=== PATIENT | male | born 1955 | race Caucasian/White ===

== ENCOUNTER 2016-09-03 10:46 | Emergency (ER) | payer OTHER ==
[2016-09-03 11:04] VITALS: BP 145/79; PULSE 81; RESP 19; TEMP 98.1; O2SAT 94
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
--- NOTE | 2016-09-03 13:11 | DX ---
Right Hip, Two Views Indication: Pain following fall. Technique: AP and frog-leg lateral views. Comparison: None Findings: The bones are anatomically aligned. No fracture or bone lesion. Joint spaces are well preserved. Small bumps emanate off the right and left femoral heads the junctio n with the femoral neck, larger right than left suggestive of femoral acetabular impingement. Small o steophytes emanate off the acetabulum. No subchondral sclerosis or cyst. Minimal age-appropriate oste ophytes rightest involves the lower half of the sacroiliac joints. Impression: 1. 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 2. No acute fracture.
--- NOTE | 2016-09-03 13:19 | DX ---
Right Knee, 5 Views including Standing Clinical Indications: Pain following trauma. Findings: A fracture is not identified. The bone alignment is normal. Mild degenerative changes are noted. Mild soft tissue swelling is seen medially in the distal finding. No significant joint effusio n is identified. Impression: Negative for fracture.
== END 2016-09-03 13:42 | disposition home or self-care (01) ==
DX: S83.91XA Sprain of unspecified site of right knee, initial encounter (principal); J45.909 Unspecified asthma, uncomplicated; X58.XXXA Exposure to other specified factors, initial encounter
CPT/HCPCS: L1830

== ENCOUNTER 2017-01-15 15:56 | Emergency (ER) | payer OTHER ==
[2017-01-15 16:00] VITALS: BP 144/90; PULSE 78; RESP 16; TEMP 97.9; O2SAT 94
--- NOTE | 2017-01-15 16:11 | EDPHY ---
H & P Stated Complaint: testing drugs and cut finger on glass. Poss exposure to meth Time Seen by Provider: 01/15/17 15:59 HPI/ROS: Chief Complaint: Wound check HPI: The patient presents to the ED for wound check of his left index finger. He works as a [employer] police officer. He was testing a presumed narcotic using a drug test kit. It apparently tested positive for methamphetamine. In the process of testing the substance, he fractured the test vial in sustained a small puncture to his left index finger. It bled instantaneously. The patient reports that the injury is now hemostatic. He denies any additional complaints. His tetanus shot has been updated in the past 10 years. He has no complaints of chest pain, shortness of breath, altered mental status per, palpitations or other acute complaints. REVIEW OF SYSTEMS: Neuro: no headache, numbness, weakness Musculoskeletal: as above Skin: As above Source: Patient - Personal History Current Tetanus/Diphtheria Vaccine: Yes Current Tetanus Diphtheria and Acellular Pertussis (TDAP): Yes - Medical/Surgical History Hx Asthma: Yes Hx Chronic Respiratory Disease: No Hx Diabetes: No Hx Cardiac Disease: No Hx Renal Disease: No Hx Cirrhosis: No Hx Alcoholism: No Hx HIV/AIDS: No Hx Splenectomy or Spleen Trauma: No Other PMH: ORTHO SURG ON FACE/htn - Social History Smoking Status: Never smoked - Physical Exam Exam: General: No acute distress Left hand: Small puncture wound noted to the left index finger, currently hemostatic, neurovascularly intact Neuro: Sensation intact to light touch Vascular: Normal capillary refill Constitutional: Initial Vital Signs Temperature (C) 36.6 C 01/15/17 15:58 Heart Rate 78 01/15/17 15:58 Respiratory Rate 16 01/15/17 15:58 Blood Pressure 144/90 H 01/15/17 15:58 O2 Sat (%) 94 01/15/17 15:58 O2 Delivery Mode Room Air Allergies/Adverse Reactions: Sulfa (Sulfonamide Antibiotics) Allergy (Verified 09/03/16 11:00) Home Medications: Medication Instructions Recorded Advair 250/50 03/04/10 SYNTHROID 03/04/10 Atenolol 09/03/16 Lisinopril 09/03/16 Medical Decision Making ED Course/Re-evaluation: The patient presents to the ED after he was accidentally cut by a glass in a drug testing kit. The patient has a very small puncture/laceration to his left hand. The patient is noted to be neurologically intact. He has no evidence of an obvious toxidrome. The patient has no evidence of a significant injury. I assumed the test get a sterile. There is no indication for further testing at this point time. Departure - Departure Disposition: Home, Routine, Self-Care Clinical Impression: Puncture wound of finger Condition: Good Instructions: Puncture Wound (ED) Additional Instructions: 1. Return to the ED for any increased pain, redness, swelling or other concerns. 2. You may return to normal duty at work.
== END 2017-01-15 16:15 | disposition home or self-care (01) ==
DX: S61.231A Puncture wound without foreign body of left index finger without damage to nail, initial encounter (principal); I10 Essential (primary) hypertension; J45.909 Unspecified asthma, uncomplicated; W25.XXXA Contact with sharp glass, initial encounter

== ENCOUNTER 2017-03-26 09:17 | Emergency (ER) | payer OTHER ==
[2017-03-26 09:21] VITALS: RESP 16; TEMP 98.2; O2SAT 93
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
[2017-03-26 10:18] VITALS: BP 123/81; PULSE 76
== END 2017-03-26 10:18 | disposition home or self-care (01) ==
DX: S50.312A Abrasion of left elbow, initial encounter (principal); S80.211A Abrasion, right knee, initial encounter; S80.212A Abrasion, left knee, initial encounter; M25.722 Osteophyte, left elbow; J45.909 Unspecified asthma, uncomplicated; I10 Essential (primary) hypertension; I25.2 Old myocardial infarction; Y04.0XXA Assault by unarmed brawl or fight, initial encounter